=== PATIENT | female | born 1965 | race Caucasian/White ===

== ENCOUNTER 2019-10-02 08:54 | Inpatient (IN) | payer MEDICAID ==
[~2019-10-02] VITALS: Ht 154.9 cm; Wt 65.1 kg
[2019-10-02] MEDS ORDERED: SODIUM CHLORIDE 0.9% 1,000 ML IV ONE (10:10)
[2019-10-02] MEDS ORDERED: MORPHINE SULFATE 4 MG/ML CPJ (NOT FOR IM USE) IV STA (10:10)
[2019-10-02] MEDS ORDERED: ONDANSETRON HCL 4MG/2ML INJ IV STA (10:10)
[2019-10-02 10:24] LABS: BASOPHILS % 0.2 % (0.0-2.0); CHLORIDE 100 mEq/L (98-107); HEMOGLOBIN. 12.7 g/dL (12.0-16.0); LYMPHOCYTES % 20.7 % (20.0-50.0); MEAN CORPUSCULAR HEMOGLOBIN 26.5 pg (28.0-32.0); MEAN CORPUSCULAR VOLUME 79.2 fL (81.0-99.0); MEAN PLATELET VOLUME 8.1 fl (7.4-10.4); MONOCYTES % 4.5 % (2.0-8.0); NEUTROPHILS % 73.6 % (40.0-76.0); PLATELET 273 x1000/uL (130-400); RED CELL DISTRIBUTION WIDTH 14.2 % (11.6-14.6)
[2019-10-02 10:37] LABS: CLARITY URINE CLEAR (CLEAR); COLOR URINE YELLOW (YELLOW); KETONES URINE NEGATIVE (NEGATIVE); LEUKOCYTE ESTERASE URINE 1+ (NEGATIVE); NITRITE URINE NEGATIVE (NEGATIVE); OCCULT BLOOD URINE 2+ (NEGATIVE); PROTEIN URINE NEGATIVE (NEGATIVE); SPECIFIC GRAVITY URINE 1.019 (1.005-1.030); UROBILINOGEN URINE 0.2 E.U./dL (0.2-1.0)
[2019-10-02] MEDS ORDERED: MAGNESIUM 1 G PREMIX 100 ML IV ONE (11:00)
[2019-10-02] MEDS ORDERED: KCL 20MEQ/100ML PREMIX 100 ML IV ONE (11:00)
[2019-10-02 11:41] LABS: HCG SCREEN NEGATIVE
[2019-10-02] MEDS ORDERED: CEFTRIAXONE 1 G PREMIX 50 ML IV ONE ×2 (12:15→17:15)
[2019-10-02] MEDS ORDERED: POTASSIUM CHLORIDE 20MEQ TABLET SR PO ONE (12:15)
[2019-10-02] MEDS ORDERED: MORPHINE SULFATE 4 MG/ML CPJ (NOT FOR IM USE) IV ONE (12:45)
[2019-10-02] MEDS ORDERED: DEXT 5%/0.45% NACL KCL 10MEQ/L 1,000 ML IV SCH ×2 (13:44→18:13)
[2019-10-02] MEDS ORDERED: HYDRALAZINE 20MG/ML VIAL IV PRN (13:45)
[2019-10-02] MEDS ORDERED: POTASSIUM CHLORIDE 20MEQ/PACKET PO SCH (13:45)
[2019-10-02] MEDS ORDERED: ACETAMINOPHEN 325MG TABLET PO PRN (13:45)
[2019-10-02] MEDS ORDERED: KCL 10MEQ/50ML PREMIX 50 ML IV SCH (13:45)
[2019-10-02] MEDS: DEXT 5%/0.45% NACL KCL 10MEQ/L 1,000 ML IV SCH (20:29)
[2019-10-02] MEDS ORDERED: HEPARIN 5000 UNITS/ML VIAL SUBCUT SCH (23:47)
[2019-10-03] MEDS: DEXT 5%/0.45% NACL KCL 10MEQ/L 1,000 ML IV SCH (09:05)
[2019-10-03] MEDS: MORPHINE SULFATE 2 MG/ML CPJ (NOT FOR IM USE) IV PRN ×2 (09:32→18:17)
[2019-10-03] MEDS: ONDANSETRON HCL 4MG/2ML INJ IV PRN ×2 (09:33→18:12)
[2019-10-03 09:43] LABS: BASOPHILS % 0.1 % (0.0-2.0); EOSINOPHILS % 0.4 % (0.0-5.0); HEMATOCRIT. 36.8 % (36.0-48.0); HEMOGLOBIN. 12.3 g/dL (12.0-16.0); LYMPHOCYTES % 15.5 % (20.0-50.0); MEAN CORPUSCULAR HEMOGLOBIN 26.5 pg (28.0-32.0); MEAN CORPUSCULAR VOLUME 79.5 fL (81.0-99.0); MONOCYTES % 7.9 % (2.0-8.0); NEUTROPHILS % 76.1 % (40.0-76.0); PLATELET 255 x1000/uL (130-400); RED BLOOD CELL COUNT 4.62 mill/uL (4.2-5.4); RED CELL DISTRIBUTION WIDTH 14.5 % (11.6-14.6)
[2019-10-03] MEDS: HEPARIN 5000 UNITS/ML VIAL SUBCUT SCH ×2 (09:43→22:12)
[2019-10-03 09:50] LABS: CHLORIDE 107 mEq/L (98-107)
[2019-10-03] MEDS ORDERED: CEFTRIAXONE 1 G PREMIX 50 ML IV NR (13:15)
[2019-10-03 15:06] VITALS: BP 168/85
[2019-10-03 16:00] VITALS: BP 135/93
[2019-10-03 20:00] VITALS: BP 158/71
[2019-10-04] VITALS (7 sets, daily range): BP systolic 103–161; BP diastolic 53–79
[2019-10-04] MEDS: MORPHINE SULFATE 2 MG/ML CPJ (NOT FOR IM USE) IV PRN ×3 (00:28→22:47)
[2019-10-04] MEDS ORDERED: CEFTRIAXONE 1 G PREMIX 50 ML IV SCH (09:00)
[2019-10-04] MEDS: HEPARIN 5000 UNITS/ML VIAL SUBCUT SCH ×2 (10:00→20:49)
[2019-10-04] MEDS ORDERED: LISI-649 PO (15:03)
[2019-10-04] MEDS: ONDANSETRON HCL 4MG/2ML INJ IV PRN (16:25)
[2019-10-04 18:11] LABS: BASOPHILS % 0.2 % (0.0-2.0); EOSINOPHILS % 0.6 % (0.0-5.0); HEMATOCRIT. 36.5 % (36.0-48.0); LYMPHOCYTES % 14.9 % (20.0-50.0); MEAN CORPUSCULAR HEMOGLOBIN 26.1 pg (28.0-32.0); MEAN CORPUSCULAR VOLUME 79.7 fL (81.0-99.0); MEAN PLATELET VOLUME 8.4 fl (7.4-10.4); MONOCYTES % 10.1 % (2.0-8.0); NEUTROPHILS % 74.2 % (40.0-76.0); PLATELET 245 x1000/uL (130-400); RED BLOOD CELL COUNT 4.58 mill/uL (4.2-5.4); RED CELL DISTRIBUTION WIDTH 14.8 % (11.6-14.6)
[2019-10-04 18:22] LABS: CHLORIDE 104 mEq/L (98-107)
[2019-10-05] VITALS: BP 138/77
[2019-10-05 04:00] VITALS: BP 121/76
[2019-10-05 08:00] VITALS: BP 128/78
[2019-10-05] MEDS: HEPARIN 5000 UNITS/ML VIAL SUBCUT SCH ×2 (08:45→22:21)
[2019-10-05] MEDS: HYDROCHLOROTHIAZIDE 25MG TABLET PO SCH (08:46)
[2019-10-05] MEDS: LISINOPRIL 20MG TABLET PO SCH (08:49)
[2019-10-05] MEDS ORDERED: CEFTRIAXONE 1 G PREMIX 50 ML IV SCH (09:00)
[2019-10-05] MEDS ORDERED: HYDROCHLOROTHIAZIDE PO SCH (09:00)
[2019-10-05] MEDS ORDERED: LISINOPRIL PO SCH (09:00)
[2019-10-05] MEDS ORDERED: [UNRECOGNIZED DRUG - OTHER] PO SCH (09:00)
[2019-10-05 10:57] LABS: BASOPHILS % 0.2 % (0.0-2.0); EOSINOPHILS % 1.4 % (0.0-5.0); HEMATOCRIT. 35.3 % (36.0-48.0); HEMOGLOBIN. 11.7 g/dL (12.0-16.0); MEAN CORPUSCULAR HEMOGLOBIN 26.6 pg (28.0-32.0); MEAN CORPUSCULAR VOLUME 79.8 fL (81.0-99.0); MEAN PLATELET VOLUME 8.5 fl (7.4-10.4); MONOCYTES % 7.8 % (2.0-8.0); NEUTROPHILS % 76.6 % (40.0-76.0); PLATELET 236 x1000/uL (130-400); RED BLOOD CELL COUNT 4.42 mill/uL (4.2-5.4); RED CELL DISTRIBUTION WIDTH 14.4 % (11.6-14.6)
[2019-10-05] MEDS: MORPHINE SULFATE 2 MG/ML CPJ (NOT FOR IM USE) IV PRN ×3 (11:00→23:57)
[2019-10-05 11:21] LABS: CHLORIDE 101 mEq/L (98-107)
[2019-10-05 12:00] VITALS: BP 100/67
[2019-10-05] MEDS ORDERED: CEPH-569 MT (13:03)
[2019-10-05 16:00] VITALS: BP 116/61
[2019-10-05 16:53] LABS: AMYLASE 33 IU/L (25-115)
[2019-10-05 20:00] VITALS: BP 118/64
[2019-10-06] VITALS: BP 121/68
[2019-10-06 04:00] VITALS: BP 118/72
[2019-10-06] MEDS: MORPHINE SULFATE 2 MG/ML CPJ (NOT FOR IM USE) IV PRN (06:47)
[2019-10-06 07:36] LABS: BASOPHILS % 0.3 % (0.0-2.0); EOSINOPHILS % 2.4 % (0.0-5.0); HEMATOCRIT. 34.5 % (36.0-48.0); HEMOGLOBIN. 11.3 g/dL (12.0-16.0); LYMPHOCYTES % 16.2 % (20.0-50.0); MEAN CORPUSCULAR HEMOGLOBIN 26.1 pg (28.0-32.0); MEAN CORPUSCULAR VOLUME 79.8 fL (81.0-99.0); MEAN PLATELET VOLUME 8.3 fl (7.4-10.4); MONOCYTES % 9.2 % (2.0-8.0); NEUTROPHILS % 71.9 % (40.0-76.0); PLATELET 249 x1000/uL (130-400); RED BLOOD CELL COUNT 4.33 mill/uL (4.2-5.4); RED CELL DISTRIBUTION WIDTH 14.4 % (11.6-14.6)
[2019-10-06 07:50] LABS: CHLORIDE 100 mEq/L (98-107)
[2019-10-06 08:00] VITALS: BP 94/64
[2019-10-06] MEDS: LISINOPRIL 20MG TABLET PO SCH (09:00)
[2019-10-06] MEDS: HYDROCHLOROTHIAZIDE 25MG TABLET PO SCH (09:00)
[2019-10-06] MEDS ORDERED: CEFTRIAXONE 1 G PREMIX 50 ML IV SCH ×2 (09:00)
[2019-10-06] MEDS: HEPARIN 5000 UNITS/ML VIAL SUBCUT SCH (09:41)
[2019-10-06 15:45] VITALS: BP 126/71
[2019-10-06 15:47] VITALS: BP 126/71
[2019-10-06 16:19] LABS: CREATINE KINASE 56 IU/L (26-192)
== END 2019-10-06 16:30 | disposition home or self-care (01) | DRG 463 ==
LOC: ER 08:54 → 7WST 13:26 → EDBEDREQ 23:04 → ENRESERV 10-03 12:36 → 5WST 10-05 00:45
PROVIDERS: ADMIT Internal Medicine; ATTEND Internal Medicine
DX: N39.0 Urinary tract infection, site not specified (principal); E87.1 Hypo-osmolality and hyponatremia; E87.6 Hypokalemia; N28.1 Cyst of kidney, acquired; I10 Essential (primary) hypertension; R73.9 Hyperglycemia, unspecified; R74.0 Nonspecific elevation of levels of transaminase and lactic acid dehydrogenase [LDH]; K80.20 Calculus of gallbladder without cholecystitis without obstruction; K57.30 Diverticulosis of large intestine without perforation or abscess without bleeding; B96.20 Unspecified Escherichia coli [E. coli] as the cause of diseases classified elsewhere; Z90.710 Acquired absence of both cervix and uterus; Z03.818 Encounter for observation for suspected exposure to other biological agents ruled out
CPT/HCPCS: 36415; 71045; 74177; 76700; 76856; 80053; 81003; 82150; 82550; 83036; 83735; 84703; 85025; 87077; 87186; 93005; 99285; J0696; J1644; J2270; J2405; J3475; J3480; J7030; U0003